=== PATIENT | female | born 1950 | race African-American/Black ===

== ENCOUNTER 2017-09-25 11:10 | Outpatient (CLI) | payer MEDICARE ==
[2017-09-25] MEDS ORDERED: Iopamidol 370 76% 50 ML VIAL FS ONE (13:26)
[2017-09-25] MEDS ORDERED: Iopamidol 370 76% 100 ML VIAL ONE (13:26)
--- NOTE | 2017-09-25 13:54 | CT ---
CT ABDOMEN AND PELVIS WITH AND WITHOUT CONTRAST: HISTORY: Abnormal weight loss and pelvic pathology. COMPARISON: None. TECHNIQUE: Multiple contiguous axial images were obtained in a CT of the abdomen and pelvis with and without IV contrast, and p.o. contrast was administered. Coronal reformats were performed. FINDINGS: The liver, gallbladder, kidneys, adrenal glands, spleen, and pancreas are unremarkable. No free air, free fluid, or stranding changes are seen in the abdomen or pelvis. The uterus is enlarged and contains multiple calcified fibroids. The large and small bowel are unrem arkable. The appendix is unremarkable. No abdominal or pelvic lymphadenopathy is seen. 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 Degenerative changes and post surgical changes are seen in the spine. The abdominal wall soft tissue s and visualized inferior thorax are unremarkable. IMPRESSION: Enlarged fibroid uterus. POS: [facility]
== END 2017-09-25 11:11 | disposition home or self-care (01) ==
LOC: CT 11:10
PROVIDERS: ATTEND Family Medicine
DX: R63.4 Abnormal weight loss (principal); D25.9 Leiomyoma of uterus, unspecified
CPT/HCPCS: 74178

== ENCOUNTER 2018-05-14 11:13 | Emergency (ER) | payer MEDICARE ==
[~2018-05-14 11:13] MED LIST: ISOVUE-370 76%-LOCM 1 ML ONE
[2018-05-14] MEDS ORDERED: Ondansetron HCl/PF 4 MG/2 ML Vial ONE ×2 (11:44→14:22)
[2018-05-14] MEDS ORDERED: HYDROmorphone 0.5 MG/0.5 ML SYRINGE ONE (11:44)
[2018-05-14 11:50] LABS: #Eosinphils 0.1 thou/uL (0.0-0.7); #Lymphocytes 2.9 thou/uL (1.20-3.40); #Monocytes 0.4 thou/uL (0.11-0.59); #Neutrophils 2.5 thou/uL (1.40-6.50); %Basophils 0.5 % (0.0-1.0); %Eosinophils 2.3 % (0.0-10.0); %Monocytes 7.3 % (0.0-10.0); %Neutrophils 40.9 % (42.0-75.0); Hemoglobin 13.5 g/dL (12.0-16.0); Mean Corpuscular HGB CONC 32.5 g/dL (32.0-36.0); Mean Corpuscular Hemoglobin 29.6 pg (27.0-31.0); Mean Corpuscular Volume 90.9 fL (78.0-98.0); Mean Platelet Volume 7.3 fL (7.4-10.4); Platelet Count 171 thou/uL (130-400); RBC Distribution Width 12.2 % (11.5-14.5); Red Blood Cell (RBC) Count 4.55 mill/uL (4.20-5.40)
[2018-05-14 12:05] LABS: ALT (SGPT) Less than 7 U/L (8-55); AST (SGOT) 12 U/L (5-34); Albumin 3.8 g/dL (3.4-4.8); Alkaline Phosphatase 54 U/L (40-150); Anion Gap 11 mmol/L (10-20); BUN (Urea Nitrogen) 7 mg/dL (9.8-20.1); Bilirubin, Total 0.5 mg/dL (0.2-1.2); CK (CPK) 78 U/L (29-168); Calc. Creatinine Clearance 0 mL/min (70-130); Calcium 9.4 mg/dL (7.8-10.44); Carbon Dioxide 28 mmol/L (23-31); Chloride 103 mmol/L (98-107); Estimated GFR-MDRD Greater than 90; Globulin 3.2 g/dL (2.4-3.5); Glucose 132 mg/dL (80-115); Lipase 33 U/L (8-78); Sodium 139 mmol/L (136-145)
[2018-05-14 12:07] LABS: CKMB 0.7 ng/mL (0-6.6); Troponin I Less than 0.010 ng/mL (< 0.028)
[2018-05-14 12:09] LABS: Potassium 2.8 mmol/L (3.5-5.1)
--- NOTE | 2018-05-14 12:29 | ULT ---
SONOGRAM RIGHT UPPER QUADRANT: History: Nausea, vomiting. Right upper quadrant pain. FINDINGS: Gallbladder has a normal appearance without evidence of stones. Common duct is 0.4 cm. The liver is u nremarkable without focal mass or intrahepatic biliary dilatation. No free fluid. IMPRESSION: No evidence of gallstones or biliary obstruction. POS: [facility]
[2018-05-14 13:07] LABS: Bilirubin Negative (Negative); Blood, Urine Negative (Negative); Clarity CLEAR (Clear); Glucose, Urine (Dipstick) Negative (Negative); Leukocyte Negative (Negative); Nitrite Negative (Negative); Protein, Urine (Dipstick) Negative (Neg-Trace); Specific Gravity, Urine 1.013 (1.002-1.036)
[2018-05-14] MEDS ORDERED: ADMIXTURE FEE IVPB SCH (13:45)
[2018-05-14] MEDS ORDERED: POTASSIUM CHLORIDE IVPB SCH (13:45)
[2018-05-14] MEDS ORDERED: WATER IVPB SCH (13:45)
[2018-05-14] MEDS ORDERED: DEXTROSE IVPB SCH (13:45)
--- NOTE | 2018-05-14 14:52 | RAD ---
CHEST ONE VIEW: 05/14/18 HISTORY: Vomiting. Chest pain. COMPARISON: 06/11/17. FINDINGS: The cardiac silhouette is magnified by projection. The pulmonary vasculature upper limits of normal w ith mild reticulonodular interstitial prominence throughout each lung. Mild linear atelectasis at the left base. Mediastinum is midline with aortic calcification. No lobar consolidation or evidence of p neumothorax. IMPRESSION: 1. Widespread reticulonodular interstitial prominence may be related to borderline pulmonary va scular congestion and is more pronounced than on the prior study. 2. Atherosclerosis. POS: [facility]
--- NOTE | 2018-05-14 14:59 | CT ---
CT OF ABDOMEN AND PELVIS WITH CONTRAST ENHANCEMENT: 05/14/18 HISTORY: Right sided abdomen pain. COMPARISON: 09/25/17 examination. The lung bases show some chronic appearing interstitial lung change. Some of these interstitial sergio ngs are slightly accentuated as compared to the prior exam and probably represents some superimposed atelectasis. No confluent infiltrative process is seen. No pulmonary nodules. The liver, spleen, pancreas and gallbladder regions appear unremarkable. Right and left adrenal glands and right and left kidneys are normal in size. No obstruction. There is no significant periaortic or mesenteric adenopathy. There is extensive renal artery calcifications. The patient has undergoing an aortobifemoral bypass. CT OF PELVIS PERFORMED WITH CONTRAST ENHANCEMENT: The appendix is normal. There is a fibromatous appearing uterus. There is no evidence of any signific ant adenopathy or mass. No significant bony findings. IMPRESSION: 1. Enlarged fibromatous uterus. 2. Aortobifemoral bypass. 3. Chronic interstitial lung changes. The interstitial changes are somewhat accentuated as tyrone red to the prior exam and probably represents some superimposed atelectasis. Some mild element of rico ma could also be present. POS: [facility]
--- NOTE | 2018-05-18 13:36 | EKG ---
Test Reason : Blood Pressure : / mmHG Vent. Rate : 051 BPM Atrial Rate : 051 BPM P-R Int : 156 ms QRS Dur : 088 ms QT Int : 456 ms P-R-T Axes : 044 -09 -21 degrees QTc Int : 420 ms Sinus bradycardia Nonspecific T wave abnormality Abnormal ECG Confirmed by JERRY SAMUELS, SAMANTHA Carbajal ([id number]), newspaper copy editor MELODY PADILLA ([id number]) on 05/18/2018 1:35:34 PM Referred By: Confirmed By:SAMANTHA EDWARDS MD
== END 2018-05-14 16:40 | disposition home or self-care (01) ==
LOC: ERS 11:13
DX: R11.2 Nausea with vomiting, unspecified (principal); I10 Essential (primary) hypertension; E78.5 Hyperlipidemia, unspecified; F17.210 Nicotine dependence, cigarettes, uncomplicated; Z79.82 Long term (current) use of aspirin; Z79.899 Other long term (current) drug therapy
CPT/HCPCS: 36415; 51701; 71045; 74177; 76705; 80053; 81003; 82553; 83605; 83690; 84484; 85025; 93005; 96361; 96374; 96375; 96376; A4353; J1170; J2405; J3480; J7070

== ENCOUNTER 2018-06-06 13:00 | Outpatient (CLI) | payer MEDICARE ==
--- NOTE | 2018-06-06 16:48 | RAD ---
TWO VIEWS OF THE CHEST: 06/06/18 HISTORY: Yearly check up. COMPARISON: 06/11/17. FINDINGS: No pneumothorax or pleural fluid. No lobar consolidation or alveolar edema. Postoperative clips are s een in the upper abdomen, incompletely assessed on this exam. IMPRESSION: No acute findings. Stable two view examination of the chest. POS: [facility]
== END 2018-06-06 13:01 | disposition home or self-care (01) ==
LOC: BICMAMMO 13:00
PROVIDERS: ATTEND Family Medicine
DX: Z12.31 Encounter for screening mammogram for malignant neoplasm of breast (principal); Z00.00 Encounter for general adult medical examination without abnormal findings; Z80.3 Family history of malignant neoplasm of breast
CPT/HCPCS: 71046; 77063; 77067

== ENCOUNTER 2018-07-30 14:12 | Outpatient (CLI) | payer MEDICARE, OTHER ==
--- NOTE | 2018-07-30 14:58 | RAD ---
TWO VIEW CHEST: Indications: Abnormal chest radiograph. Comparison: 06-06-18 FINDINGS: Lung wylie remain clear of infiltrate. Interstitial markings are mildly prominent and there is stran ding in the left lower lobe which is stable. Vascular markings normal. Heart and mediastinum unremark able. Osseous structures unremarkable. IMPRESSION: Chronic lung parenchymal changes which appear stable. No acute process apparent. POS: [facility]
== END 2018-07-30 14:13 | disposition home or self-care (01) ==
LOC: BICRAD 14:12
PROVIDERS: ATTEND Family Medicine
DX: R93.89 Abnormal findings on diagnostic imaging of other specified body structures (principal)
CPT/HCPCS: 71046

== ENCOUNTER 2018-08-27 14:43 | Emergency (ER) | payer MEDICARE, OTHER ==
[2018-08-27 15:15] LABS: Bilirubin Small (Negative); Blood, Urine Small (Negative); Clarity Cloudy (Clear); Glucose, Urine (Dipstick) Negative (Negative); Leukocyte Moderate (Negative); Nitrite Negative (Negative); Protein, Urine (Dipstick) 30 mg/dL (Neg-Trace); Urobilinogen > or = 8.0 mg/dL (0.2-1.0); pH, Urine 6.5 (5.0-9.0)
[2018-08-27 15:19] LABS: Bacteria/HPF 2+ HPF (None Seen)
[2018-08-27 15:51] LABS: Band 15 % (5-11); Dohle Bodies SLIGHT; Hemoglobin 12.9 g/dL (12.0-16.0); Lymphocytes 4 % (21-51); MDiff Complete? YES; Mean Corpuscular HGB CONC 32.4 g/dL (32.0-36.0); Mean Corpuscular Hemoglobin 28.8 pg (27.0-31.0); Mean Corpuscular Volume 88.7 fL (78.0-98.0); Mean Platelet Volume 6.8 fL (7.4-10.4); Monocytes 5 % (0-10); Neutrophil 71 % (42-75); Platelet Count 206 thou/uL (130-400); Platelet Morphology Comment Appears Adequate; RBC Distribution Width 12.2 % (11.5-14.5); Reactive Lymphocytes 5 % (0-10); Red Blood Cell (RBC) Count 4.49 mill/uL (4.20-5.40); Toxic Granulation SLIGHT; Vacuoles SLIGHT; White Blood Cell (WBC) Count 21.1 thou/uL (4.8-10.8)
[2018-08-27 15:56] LABS: ALT (SGPT) 11 U/L (8-55); AST (SGOT) 14 U/L (5-34); Albumin 3.2 g/dL (3.4-4.8); Alkaline Phosphatase 85 U/L (40-150); Anion Gap 15 mmol/L (10-20); BUN (Urea Nitrogen) 7 mg/dL (9.8-20.1); Bilirubin, Total 0.6 mg/dL (0.2-1.2); Calc. Creatinine Clearance 0 mL/min (70-130); Calcium 9.3 mg/dL (7.8-10.44); Carbon Dioxide 32 mmol/L (23-31); Chloride 93 mmol/L (98-107); Estimated GFR-MDRD Greater than 90; Glucose 109 mg/dL (80-115); Lipase 10 U/L (8-78); Protein, Total 7.2 g/dL (6.0-8.3); Sodium 137 mmol/L (136-145)
[2018-08-27 16:00] LABS: Potassium 2.6 mmol/L (3.5-5.1)
[2018-08-27] MEDS ORDERED: Cephalexin 500 MG CAP ONE (16:24)
[2018-08-27] MEDS ORDERED: Potassium Chloride 20 MEQ TAB ONE ×2 (16:24→16:25)
[2018-08-27] MEDS ORDERED: Potassium Chloride 20 MEQ/100 ML PREMIX BAG ONE (16:24)
--- NOTE | 2018-08-27 17:19 | CT ---
CT ABDOMEN AND PELVIS WITH CONTRAST: Date: 08/27/18 Reference made to 05/14/18 exam. CLINICAL INDICATION: Left lower abdominal pain. FINDINGS: When compared to recent exam, there has been marked increased volume of the uterus, which predominant ly is due to low density within the expected confines of the endometrium, which contains irregular pe ripheral margins. This is encompassed by several calcified fibroids, one of which is located at the l ower uterine segment and likely occludes the region of the internal os. Therefore, the finding is mos t consistent with hematometrocolpos and the associated distention likely would be the course of the p atient's lower abdominal pain. There is punctate hypoattenuation of the hepatic parenchyma, too small to definitively characterize. There is also punctate hypoattenuation of the right renal parenchyma too small to further characteriz e. Minimal distention of each renal pelvis is present without surrounding inflammation. Subtle intrin sic density of the gallbladder may related to mild degree of radiopaque cholelithiasis. Pancreas is g rossly unremarkable. The imaged lung bases reveal mild volume loss and/or scar. There is also depende nt atelectasis of the lung bases. Diffuse vascular disease is present. The regional skeletal structur es reveal degenerative change. IMPRESSION: Findings most consistent with hematometrocolpos due to an obstructing, calcified uterine fibroid. The refore, recommend gynecologic consultation for decompression/biopsy as the possibility of underlying endometrial malignancy is not excluded on the basis of this exam. Additional details as described above. Telephone call to patient's ER physician, Dr. Burns, at 1635 hours on 08/27/18. CODE CR. POS: [facility]
[2018-08-27] MEDS ORDERED: Magnesium Sulfate 2 GM/NS 0.9% 50 ML BAG ONE (17:47)
== END 2018-08-27 18:25 | disposition home or self-care (01) ==
LOC: SCSER 14:43
DX: N85.7 Hematometra (principal); E87.6 Hypokalemia; N39.0 Urinary tract infection, site not specified; I10 Essential (primary) hypertension; E78.5 Hyperlipidemia, unspecified; F17.210 Nicotine dependence, cigarettes, uncomplicated; Z79.899 Other long term (current) drug therapy; Z79.82 Long term (current) use of aspirin
CPT/HCPCS: 36415; 74177; 80053; 81003; 81015; 83690; 83735; 85025; 87086; 96365; 96366; 96367; J3475; J3480

== ENCOUNTER 2018-08-29 17:18 | Emergency (ER) | payer MEDICARE, OTHER ==
[2018-08-29] MEDS ORDERED: Acetaminophen 500 MG TAB ONE (20:06)
--- NOTE | 2018-08-29 21:58 | ULT ---
ULTRASOUND PELVIC ULTRASOUND TRANSVAGINAL DOPPLER DUPLEX: 08/29/18 at 8:40 p.m. HISTORY: 68-year-old female with hematometrocolpos and left sided pelvic pain. TECHNIQUE: Transabdominal transducer used to evaluate intrapelvic contents using the urinary bladder as an acous tic window. Endovaginal transducer used to visualize intrapelvic contents in greater detail. Color fl ow Doppler and Pulsed Doppler spectral waveform analysis of ovaries. FINDINGS: Uterus: 10.5 x 6.5 x 8.5 cm. There are multiple calcified uterine fibroids, some causing strong acoustic shadowing. The endometrial stripe is not visualized. The large fluid-filled cystic central component of the uter us with irregular margins demonstrated on the CT of 08/27/18, is difficult to appreciate on this ultra sound because of the strong acoustic shadowing from the calcified fibroids. The bilateral ovaries are not visualized. No free fluid is visualized in the cul-de-sac. IMPRESSION: 1. Multiple calcified leiomyomata throughout the uterus, with shadowing that obscures much of th e uterus. 2. The uterus is better evaluated on the recent CT of the pelvis of two days ago. CHRISTINA Casey POS: [facility]
[2018-08-29] MEDS ORDERED: HYDROcodone/Acetaminophen 5/325 mg Tablet ONE (22:18)
[2018-08-29] MEDS ORDERED: Ibuprofen 200 MG TAB ONE (22:18)
== END 2018-08-29 22:30 | disposition home or self-care (01) ==
LOC: SCSER 17:18
DX: D25.9 Leiomyoma of uterus, unspecified (principal); I10 Essential (primary) hypertension; E78.5 Hyperlipidemia, unspecified; F17.210 Nicotine dependence, cigarettes, uncomplicated; Z79.899 Other long term (current) drug therapy; Z79.82 Long term (current) use of aspirin
CPT/HCPCS: 76856; 87480; 87491; 87510; 87591; 87660

== ENCOUNTER 2018-10-17 10:40 | Outpatient (CLI) | payer MEDICARE, MEDICAID ==
--- NOTE | 2018-10-17 15:52 | EKG ---
Test Reason : Blood Pressure : / mmHG Vent. Rate : 058 BPM Atrial Rate : 058 BPM P-R Int : 154 ms QRS Dur : 086 ms QT Int : 430 ms P-R-T Axes : 066 -02 030 degrees QTc Int : 422 ms Sinus bradycardia Otherwise normal ECG Confirmed by VERONA MAYER ([id number]) on 10/17/2018 3:52:21 PM Referred By: JEANNIE Confirmed By:VERNOA MAYER
== END 2018-10-17 10:41 | disposition home or self-care (01) ==
LOC: LABBT 10:40
PROVIDERS: ATTEND Obstetrics & Gynecology
DX: Z01.812 Encounter for preprocedural laboratory examination (principal); N71.9 Inflammatory disease of uterus, unspecified; R87.613 High grade squamous intraepithelial lesion on cytologic smear of cervix (HGSIL)
CPT/HCPCS: 93005; 93010

== ENCOUNTER 2018-10-28 06:07 | Day surgery (SDC) | payer MEDICARE, MEDICAID ==
[2018-10-17 10:59] VITALS: BMI 25.7
[2018-10-25 11:02] LABS: Hemoglobin 13.7 g/dL (12.0-16.0); Mean Corpuscular HGB CONC 31.3 g/dL (32.0-36.0); Mean Corpuscular Hemoglobin 28.8 pg (27.0-31.0); Mean Corpuscular Volume 91.8 fL (78.0-98.0); Mean Platelet Volume 7.4 fL (7.4-10.4); Platelet Count 167 thou/uL (130-400); RBC Distribution Width 13.2 % (11.5-14.5); Red Blood Cell (RBC) Count 4.77 mill/uL (4.20-5.40); White Blood Cell (WBC) Count 6.2 thou/uL (4.8-10.8)
--- NOTE | 2018-10-27 23:09 | HP ---
She is scheduled for outpatient surgery on 10/28/2018. HISTORY OF PRESENT ILLNESS: Ms. Moffett is a 68-year-old -[place] female, G2, P2, who originally presented to the emergency room back in August of this year with pelvic pain. She had a CAT scan of the abdomen and pelvis on August 2018, showing multiple calcified uterine fibroids and also had what appeared to be a hematometra on the uterine cavity. She was referred to myself at that time for gynecologic evaluation. Endometrial biopsy was performed with pyometra material noted. No malignancy was seen. She did have a Pap smear obtained during that visit with low-grade KOURTNEY and high-risk HPV virus positivity. While we were waiting for the pathology results, she developed what appeared to be some sepsis and was admitted to [facility], received IV antibiotics for a week. She then was followed back up with me once she recovered from this illness to further follow up the pyometra and also the abnormal Pap smears. She underwent a colposcopic examination and repeat endometrial biopsy on 10/01/2018. The colposcopic procedure at that time showed satisfactory visualization and there was biopsies at 11, 12, and 8 o'clock for some acetowhite areas with mosaicism suspicious for high-grade dysplasia. She also had endocervical biopsy along with a repeat endometrial biopsy. Endocervical biopsy did show moderate dysplasia of the cervix along with some mild dysplasia in the ectocervix. Again, the endometrial biopsy had no evidence of any endometrial cancer. The patient's inflammatory condition of the uterus appeared to be essentially resolving and she was given another week of Augmentin 875 mg b.i.d. PAST MEDICAL HISTORY: Chronic hypertension, chronic back pain, and hyperlipidemia. SOCIAL HISTORY: She is half a day pack per day smoker. No excessive alcohol use. No drug use. PAST SURGICAL HISTORY: Back and spine surgery and leg surgery procedure. ALLERGIES: SHE HAS NO KNOWN DRUG ALLERGIES. CURRENT MEDICATIONS: 1. Amlodipine 10 mg daily. 2. Gabapentin 300 mg at bedtime for chronic back pain. 3. She also uses hydrocodone 10 mg-325 mg q.6 hours p.r.n. back pain. 4. Simvastatin 20 mg tablet daily. PHYSICAL EXAMINATION: GENERAL: The patient is a well-nourished, well-developed female. VITAL SIGNS: Height is 5 feet 4 inches, weight 150 pounds, BMI 25.7, blood pressure is 116/60, pulse 68, respirations 18, and O2 sats 99% on room air. HEENT: Within normal limits. CHEST: Clear to auscultation. HEART: Regular rate and rhythm. S1 and S2 heart sounds. No murmurs, rubs, or gallops. ABDOMEN: Soft, nontender, and nondistended with no palpable masses. PELVIC: Vulva and vagina had no lesions. Cervix had no visible lesions. As noted, the colposcopy was performed. Uterus approximately 8 week size. Uterus sounded to 8 cm on endometrial biopsy. There were no adnexal masses. 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 PLAN: Plan is to proceed with cold knife cone of the cervix along with D and C to rule out any higher level of uterine or endocervical dysplasia. Also treatment potential for cold knife cone for the cervical dysplasia. Risks and benefits of procedure have been discussed in detail. She is set for surgery on 10/28/2018. Job ID: [id number]
[2018-10-28] MEDS ORDERED: Ferric Subsulfate 8 ML BOT ONE (06:42)
[2018-10-28] MEDS ORDERED: Lidocaine 1% w/Epinephrine 1:100K 20 ML VIAL ONE (06:42)
[2018-10-28] MEDS ORDERED: Fentanyl 100 MCG/2 ML VIAL ONE (06:44)
[2018-10-28] MEDS ORDERED: PROPOFOL 200 MG/20 ML VIAL ONE (09:53)
[2018-10-28] MEDS ORDERED: Dexamethasone 20 MG/5 ML VIAL ONE (09:53)
[2018-10-28] MEDS ORDERED: Lidocaine 1% PF 5 ML VIAL ONE (09:53)
[2018-10-28] MEDS ORDERED: ePHEDrine 50 MG/ML VIAL ONE (09:53)
[2018-10-28] MEDS ORDERED: Ondansetron PF 4 MG/2 ML Vial ONE (09:53)
--- NOTE | 2018-10-28 09:59 | OP ---
DATE OF PROCEDURE: 10/28/2018 PREOPERATIVE DIAGNOSES: 1. A 68-year-old female with recent colposcopic biopsy and endocervical curettage of high-grade cervical dysplasia. 2. Recent pyometra of the uterus resolved with previous benign EMB. POSTOPERATIVE DIAGNOSES: 1. A 68-year-old female with recent colposcopic biopsy and endocervical curettage of high-grade cervical dysplasia. 2. Recent pyometra of the uterus resolved with previous benign EMB. PROCEDURES PERFORMED: 1. D and C of the uterus. 2. Cold knife cone biopsy of the ecto and endocervix. ANESTHESIA: General endotracheal. ESTIMATED BLOOD LOSS: 10 mL. COMPLICATIONS: None. COUNTS: Correct x2. PATHOLOGY: Endometrial curettings and ecto and endocervix. FINDINGS: 1. No gross cervical lesions noted on the ectocervix. The cervix was noted to be short and flush to the vagina posteriorly. 2. Uterus sound was 8 cm pre and post D and C. It was approximately 6 to 8-week size consistent with uterine fibroids. DISPOSITION: Recovery room, then planned to go to Day Stay and discharged home with followup in 2 to 3 weeks. DESCRIPTION OF PROCEDURE: The patient previously received informed consent in regard to surgery. She was taken back to the operating room, where she received a general endotracheal anesthetic agent without complications. She was placed in the dorsal lithotomy position with the use of Greg stirrups. The patient was prepped in usual sterile fashion. In and out catheterization of the bladder was performed at this time with approximately 100 mL of clear urine. A side-arm speculum was placed in the vagina. The anterior lip of the cervix was grasped with a single-tooth tenaculum. The uterus sounded to 8 cm. The cervix was sequentially dilated to a size 18 Dempsey dilator. Sharp curettage of the endometrial cavity was then performed. These were sent for final diagnosis. The side-arm speculum was then removed and a weighted speculum was placed in the vagina along with the anterior Bascom retractors. The 2 angles of the cervix were then sutured with 0 Vicryl suture in [id number] stitch fashion for stay sutures. A Eddy blade was then utilized to incise and remove a cone shaped portion of the ecto and endocervix. The endocervical margin was marked with a marking pen and then later tagged with a suture. The stay sutures were then utilized to do a running locking ectocervical stitch on the edges and some endocervix for hemostasis bilaterally. Once this was achieved, then hemostasis was confirmed additional cautery on the edges of the ectocervix were performed with Bovie cautery. Hemostasis was then confirmed again and the stay sutures were cut with tags. The patient was then awakened from anesthesia and transferred to recovery room in stable condition. Job ID: [id number]
== END 2018-10-28 10:30 | disposition home or self-care (01) ==
LOC: SDC 06:07
PROVIDERS: ATTEND Obstetrics & Gynecology
PROC: 0UDB7ZZ Extraction of Endometrium, Via Natural or Artificial Opening (ICD-10-PCS; principal; 2018-10-28)
PROC: 0UBC7ZX Excision of Cervix, Via Natural or Artificial Opening, Diagnostic (ICD-10-PCS; 2018-10-28)
DX: D06.0 Carcinoma in situ of endocervix (principal); D06.1 Carcinoma in situ of exocervix; I10 Essential (primary) hypertension; G89.29 Other chronic pain; M54.9 Dorsalgia, unspecified; E78.5 Hyperlipidemia, unspecified; F17.210 Nicotine dependence, cigarettes, uncomplicated; Z79.899 Other long term (current) drug therapy; Z79.82 Long term (current) use of aspirin
CPT/HCPCS: 36415; 85027; 86850; 86900; 86901; 88305; 88307; J1100; J2001; J2405; J2704; J3010; J3490

== ENCOUNTER 2019-03-27 10:59 | Outpatient (CLI) | payer MEDICARE, MEDICAID ==
[2019-03-27 12:11] LABS: Hemoglobin 13.5 g/dL (12.0-16.0); Mean Corpuscular HGB CONC 32.5 g/dL (32.0-36.0); Mean Corpuscular Hemoglobin 29.1 pg (27.0-31.0); Mean Corpuscular Volume 89.6 fL (78.0-98.0); Mean Platelet Volume 6.8 fL (7.4-10.4); Platelet Count 228 thou/uL (130-400); RBC Distribution Width 12.2 % (11.5-14.5); Red Blood Cell (RBC) Count 4.64 mill/uL (4.20-5.40); White Blood Cell (WBC) Count 5.8 thou/uL (4.8-10.8)
[2019-03-27 12:27] LABS: ALT (SGPT) Less than 7 U/L (8-55); AST (SGOT) 11 U/L (5-34); Albumin 3.9 g/dL (3.4-4.8); Alkaline Phosphatase 89 U/L (40-150); Anion Gap 11 mmol/L (10-20); BUN (Urea Nitrogen) 6 mg/dL (9.8-20.1); Bilirubin, Total 0.4 mg/dL (0.2-1.2); Calc. Creatinine Clearance 0 mL/min (70-130); Calcium 9.2 mg/dL (7.8-10.44); Carbon Dioxide 27 mmol/L (23-31); Chloride 105 mmol/L (98-107); Estimated GFR-MDRD Greater than 90; Globulin 3.3 g/dL (2.4-3.5); Glucose 96 mg/dL (80-115); Potassium 3.7 mmol/L (3.5-5.1); Protein, Total 7.2 g/dL (6.0-8.3); Sodium 139 mmol/L (136-145)
== END 2019-03-27 11:00 | disposition home or self-care (01) ==
LOC: LABBT 10:59
PROVIDERS: ATTEND Obstetrics & Gynecology
DX: Z01.812 Encounter for preprocedural laboratory examination (principal); D21.9 Benign neoplasm of connective and other soft tissue, unspecified; N95.0 Postmenopausal bleeding
CPT/HCPCS: 80053; 85027; 86850; 86900; 86901

== ENCOUNTER 2019-04-01 08:39 | Day surgery (SDC) | payer MEDICARE, MEDICAID ==
[2019-03-27 11:14] VITALS: BMI 25.5
--- NOTE | 2019-03-31 09:27 | HP ---
She is set for surgery on 04/01/2019. HISTORY OF PRESENT ILLNESS: Ms. Moffett is a 68-year-old female. She recently presented to the emergency room in August 2018 with pelvic pain. At that time, she had a CAT scan of the abdomen and pelvis in August 2018, showing multiple calcified uterine fibroids and also had what appeared to be a hematometra on the uterine cavity. She was referred to myself at that time for gynecologic examination. Endometrial biopsy was performed with the pyometra material noted. No malignancy was seen. She also had a Pap smear with HPV, which showed high-risk HPV virus findings and low-grade cervical dysplasia. She received a prolonged antibiotic course due to the pyometra and returned for colposcopic examination, which was performed on 10/01/2018. She had biopsies of the cervix at that time at 11, 12, and 8 o'clock for some acetowhite changes with some mosaicism, which were suspicious for high-grade dysplasia. Endocervical curettage was also performed at that time, which also had high-grade cervical dysplasia. Endometrial biopsy had been repeated again without any evidence of endometrial cancer. Due to the involvement of the endocervical cavity and the concern of the patient's clinical findings, she underwent a cold knife cone biopsy on 10/29/2018. The tissue from the cone biopsy showed high-grade cervical dysplasia with multiple skip areas in the endocervical canal with no invasive cancer findings. PAST MEDICAL HISTORY: Chronic hypertension, chronic back pain, and hyperlipidemia. SOCIAL HISTORY: Of note, she is half a pack a day daily cigarette smoker. No excessive alcohol or drug use. PAST SURGICAL HISTORY: As noted, back and spine surgery and leg surgery along with cold knife cone procedure in October of this year. CURRENT MEDICATIONS: 1. Amlodipine 10 mg daily. 2. Gabapentin 300 mg at bedtime for chronic back pain. 3. P.r.n. hydrocodone 10 mg/325 q.6 hours as needed for back pain. 4. Simvastatin 20 mg tablet daily. PHYSICAL EXAMINATION: GENERAL: The patient is a well-nourished, well-developed female. VITAL SIGNS: Height 5 feet 4 inches, weight 150, BMI 25.7, blood pressure was 120/70, pulse 68, respirations 18. HEENT: Within normal limits. CHEST: Clear to auscultation. HEART: Regular rate and rhythm. S1 and S2 heart sounds. No murmurs, rubs, or gallops. ABDOMEN: Soft, nontender, nondistended with no palpable masses. PELVIC: Vulva and vagina had no lesions. Cervix had no visible lesions noted. Uterus approximately 8 to 10 weeks size. Uterus sounded on endometrial biopsy x8 cm. There were no adnexal masses. ASSESSMENT: This is a 68-year-old female, G2, P2, with high-grade cervical dysplasia in the endocervical canal with multiple skip lesions established after cold knife cone biopsy. She also has calcified uterine fibroids. PLAN: Plan is to proceed with robotic total laparoscopic hysterectomy and bilateral salpingo-oophorectomy versus ANGELA/BSO for definitive surgery for the high-grade endocervical dysplasia. The patient has high risk HPV virus in smoking and high risk for developing for future cervical cancer. Risks and benefits of procedure have been discussed in detail. She is set for surgery on 04/01/2019. Job ID: [id number]
[2019-04-01] MEDS ORDERED: Famotidine/PF 20 mg/2ml Vial ONE (09:03)
[2019-04-01] MEDS ORDERED: Gabapentin 300 MG CAP ONE (09:03)
[2019-04-01] MEDS ORDERED: CeleCOXIB 100 MG CAP ONE (09:04)
[2019-04-01] MEDS ORDERED: ceFAZolin Sodium (SDC) 2 GM/100 ML BAG ONE (09:04)
[2019-04-01] MEDS ORDERED: Midazolam HCl 2 mg/2 ml Vial ONE (10:16)
[2019-04-01] MEDS ORDERED: Fentanyl 100 MCG/2 ML VIAL ONE ×2 (10:16→15:22)
[2019-04-01] MEDS ORDERED: Bupivacaine HCl 0.5%/Epinephrine 1:200,000/PF 30 ml Vial ONE (10:18)
[2019-04-01] MEDS ORDERED: Ondansetron HCl/PF 4 MG/2 ML Vial IVP PRN (12:22)
[2019-04-01] MEDS ORDERED: Promethazine HCl 25 MG/ML VIAL SLOW IVP PRN (12:22)
[2019-04-01] MEDS ORDERED: Promethazine HCl 25 MG/ML VIAL IM PRN ×2 (12:22→14:50)
[2019-04-01] MEDS ORDERED: Simethicone Chewable 80 MG TAB PO PRN (14:50)
[2019-04-01] MEDS ORDERED: Bisacodyl 10 MG SUPP PR PRN (14:50)
[2019-04-01] MEDS ORDERED: diphenhydrAMINE 25 MG CAP PO PRN (14:50)
[2019-04-01] MEDS ORDERED: traMADol HCl 50 MG TAB PO PRN ×2 (14:50)
[2019-04-01] MEDS ORDERED: Morphine 4 MG/ML VIAL SLOW IVP PRN (14:50)
[2019-04-01] MEDS ORDERED: Ondansetron PF 4 MG/2 ML Vial IVP PRN (14:50)
[2019-04-01] MEDS ORDERED: Zolpidem Tartrate 5 MG TAB PO PRN (14:50)
[2019-04-01] MEDS: Acetaminophen 1,000 MG in Premix Bag 1 BAG IVPB SCH (18:03)
[2019-04-01] MEDS: Sodium Chloride 0.9% 1,000 ML IV SCH (18:03)
--- NOTE | 2019-04-01 20:13 | OP ---
DATE OF PROCEDURE: 04/01/2019 PREOPERATIVE DIAGNOSES: 1. 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 2. Uterine fibroids. 3. Postmenopausal bleeding. POSTOPERATIVE DIAGNOSES: 1. 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 2. Uterine fibroids. 3. Postmenopausal bleeding. 4. In addition, pelvic adhesive disease. PROCEDURES PERFORMED: 1. Robotic total laparoscopic hysterectomy and bilateral salpingo-oophorectomies with lysis of adhesions. 2. Cystoscopy. DRYING FRAME OPERATOR SURGEON: Jared Patrick DO, MS ANESTHESIA: General endotracheal. ESTIMATED BLOOD LOSS: 100 mL. COMPLICATIONS: None. COUNTS: Correct x2. ANTIBIOTICS: 2 g Ancef, on-call to OR. PATHOLOGY: Uterus, cervix, bilateral tubes and ovaries. FINDINGS: 1. Bilateral adnexal structures were both fibrosed and adhesed to the pelvic sidewalls consistent with old pelvic inflammatory disease. Otherwise, normal in appearance in regard to ovarian texture. 2. Uterus was enlarged approximately 10-week size with uterine myoma. 3. Posterior cul-de-sac was adhesed to the posterior lower uterine segment, status post adhesiolysis. 4. 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 5. Cystoscopy: Cystoscopy revealed normal-appearing bladder mucosa, and it was watertight. Bilateral efflux of urine was noted from each ureteral orifice. DISPOSITION: Recovery room, stable. DESCRIPTION OF PROCEDURE: The patient previously received informed consent in regard to surgery. She was taken back to the operating room, where she received a general endotracheal anesthetic agent without complications. She was placed in the dorsal lithotomy position with use of Greg stirrups, prepped and draped in usual sterile fashion. A side-arm speculum was placed in the vagina. The anterior lip of the cervix was grasped with single-tooth tenaculum. Uterus sounded to 8 cm. The size 8-cm CAROLYN uterine manipulator with a 3.0-cm cervical cup was placed. Tenaculum and speculum were then removed. Newman catheter had been placed. Attention was then turned to the abdomen, where perspective trocar sites were infiltrated with 0.5% Marcaine with epinephrine. A 12-mm supraumbilical incision was made. Veress needle was entered into the peritoneal cavity with the patient's pressure less than 5 mmHg. The abdomen was insufflated to the patient's pressure of 15, approximately 4.5 L of carbon dioxide gas. A size 12-mm trocar was placed through the incision site. A laparoscope was introduced through the trocar sleeve confirming proper entry. Additional bilateral lower quadrant 8-mm trocars were placed along with a right upper quadrant size 11 lead assistant manager port. The findings noted in the pelvis were then recognized. The patient had been placed in Trendelenburg position, and the robot was then docked in usual fashion. I broke scrub, and then we proceeded to carry out the surgery from the operative console while my assistants remained at the bedside. The uterus was somewhat fixed due to the scarring. The left adnexal structure was grasped at the fimbria by my lead assistant manager with atraumatic graspers. I did a dissection away of the fallopian tube and the ovary away from the pelvic sidewall in a layering technique with monopolar scissors and then was able to coagulate the thickened infundibulopelvic ligament. This was transected after cauterized. Serial cauterization of the broad ligament hugging close to the specimen was carried out in a layering technique, and then I was able to develop a plane between the peritoneal thin filmy adhesions from the left pelvic sidewall. This was able to be dissected both bluntly and sharply dissecting the specimen away from the pelvic sidewall with traction by my lead assistant manager. This then allowed us to carry down to the left round ligament. It was coagulated and transected, and then this allowed for entry into the anterior cul-de-sac. The vesicouterine peritoneum was somewhat scarred from the old inflammatory changes, but this was layered out, and this allowed me to dissect the bladder atraumatically past the cervicovaginal border. We did insufflate the bladder with saline intermittently to ascertain its position and to prevent injury towards it. I continued to layer and skeletonize the area of the uterine vessels on the left side and coagulated these with bipolar fenestrated cautery. The right adnexal structure was then again grasped by my lead assistant manager. This was more adhesed, and I developed a plane with the bipolar fenestrated cautery incising this, and this allowed for some freeing of the adnexal structures again away from the pelvic sidewall. Hemostasis was meticulously controlled with bipolar fenestrated cautery as needed. This allowed for continued dissection of adnexal structures away from the pelvic sidewall and then coagulation of the IP ligament. This then allowed first to free the tube and ovary, and we had this brought up through the right upper quadrant lead assistant manager port to rid it out of our operative field. The posterior cul-de-sac adhesions were both thin and filmy. We developed then a space through the rectovaginal space down to this with hydrodissection by my lead assistant manager, and then with a blunt dissection with the bipolar fenestrated cautery device and monopolar scissors, we dissected this plane freeing the posterior cul-de-sac from the lower uterine segment and the stump of the cervix. Once this had done, this again helped freed and gave more mobility to the uterus enabling us then to further coagulate and transect the right broad ligament hugging close to the uterine specimen down to the right round ligament. It was coagulated and transected. Again, the anterior leaf of the broad ligament was entered developing the reflection of the vesicouterine peritoneum. This completed the bladder flap and the dissection atraumatically of the bladder off the cervicovaginal margin. The uterine vessels were skeletonized meticulously in this area with intermittent cautery as needed for meticulous hemostasis. The tissue was very friable and thickened due to the previous inflammatory disease the patient had had earlier in the year. After we had mobilized the uterus and felt that the bladder was safely past the cervicovaginal angle, we again insufflated the bladder, and it was watertight and noted to be well away from our anticipated anterior colpotomy. The posterior portion of the cervix was somewhat attenuated from the recent cold knife cone and was a little bit more difficult to delineate its margins, but we began the anterior colpotomy from 12 to 3 and 12 to 9 and then secured the vessels here, and then this allowed us to better ascertain the region in line for further posterior colpotomy direction. This was carried out meticulously with cautery and cutting with the monopolar scissors until the specimen was released. To ensure that the cervix had been completely removed, we did cut back on the posterior side, and the majority of the cervix was removed and fragmented away from the uterine specimen through the vaginal vault. Then, we were able to remove the uterus through the vaginal vault. The vaginal cuff was inspected, and it was cauterized of any areas of oozing. It was then closed with Stratafix suture starting from the right angle to the left angle. The posterior cuff was fragmented due to the difficulty in getting the backside of the cervix and closing this, so we did close this adequately it was felt. The pelvis was irrigated and suctioned. All pedicle sites were inspected, and the pressure was dropped to low, and no areas of oozing were noted. Tisseel was placed due to some of the oozing from the friability of the old inflammatory changes for added hemostasis support. The robot was then undocked, and the trocar sleeves were removed. My lead assistant manager began closing the trocar sites, and the OR nurse noted more of a serosanguineous bloody fluid from the vaginal vault, and on inspection with the speculum, it appeared to be just a Pérez-Aid color red fluid from the vagina. I inspected this with then speculum and then got a weighted speculum, a right angle retractor, and a [place]. There appeared to be an approximately 1-cm defect in the midportion of the vaginal cuff most likely to the folding of the cuff during the repair, and I was able to then adequately expose this grabbing its edges with Allis clamps. I oversewed and reinforced the vaginal cuff with interrupted agbbah-dy-tfiux stitches of 2-0 Vicryl. Approximately 5 stitches were placed to reinforce the cuff line. The irrigation fluid resolved from draining from this. I did then perform cystoscopy of the bladder with 30-degree scope and 70-degree scope. With 30-degree scope, the bladder was distended with saline, and the bladder mucosa was inspected. There were no defects or lesions seen, and the bladder was watertight. Then, a 70-degree scope was placed, and I was able to visualize some efflux from the right UO and the left UO of urine. Once this was confirmed, the cystoscopy was completed, and the Newman bag was replaced with clear urine draining from the Newman catheter. The remainder of the trocar sites had been closed by my lead assistant manager. The fascial defect had been approximated with 0 Vicryl in gsditw-[id number]-dwnkp stitch fashion over the umbilicus area. The patient was then awakened from anesthesia and transferred to recovery room in stable condition. Job ID: [id number]
[2019-04-01] MEDS ORDERED: Atorvastatin Calcium 10 MG TAB PO SCH (21:00)
[2019-04-01] MEDS ORDERED: Ketorolac Tromethamine 30 MG/ML VIAL IVP SCH (22:00)
[2019-04-02] MEDS: Acetaminophen 1,000 MG in Premix Bag 1 BAG IVPB SCH (00:08)
[2019-04-02] MEDS: Sodium Chloride 0.9% 1,000 ML IV SCH (02:29)
[2019-04-02 04:30] LABS: Hemoglobin 11.4 g/dL (12.0-16.0); Mean Corpuscular HGB CONC 32.6 g/dL (32.0-36.0); Mean Corpuscular Hemoglobin 29.6 pg (27.0-31.0); Mean Corpuscular Volume 90.8 fL (78.0-98.0); Mean Platelet Volume 7.1 fL (7.4-10.4); Platelet Count 171 thou/uL (130-400); RBC Distribution Width 12.3 % (11.5-14.5); Red Blood Cell (RBC) Count 3.86 mill/uL (4.20-5.40); White Blood Cell (WBC) Count 12.2 thou/uL (4.8-10.8)
[2019-04-02] MEDS ORDERED: Ibuprofen 800 MG TAB PO SCH (06:00)
[2019-04-02] MEDS ORDERED: Amlodipine 10 MG TAB PO SCH (09:00)
[2019-04-02] MEDS ORDERED: Multivit, Therapeutic 1 TAB PO SCH (09:00)
[2019-04-02] MEDS: HYDROcodone/Acetaminophen 7.5/325 mg Tablet PO PRN ×2 (09:33→15:46)
[2019-04-02 16:44] VITALS: BP 100/53; TEMP 98.8
[2019-04-02] MEDS ORDERED: Ibuprofen 600 MG TAB PO SCH (22:00)
--- NOTE | 2019-04-03 01:52 | DIS ---
DATE OF ADMISSION: 04/01/2019 DATE OF DISCHARGE: 04/02/2019 DIAGNOSES: 1. High-grade cervical dysplasia of the ecto and endocervix. 2. Uterine fibroids. 3. Postmenopausal bleeding. 4. Pelvic adhesive disease. PROCEDURES PERFORMED: Robotic total laparoscopic hysterectomy and bilateral salpingo-oophorectomy with lysis of adhesions. SUMMARY OF HOSPITAL COURSE: Ms. Moffett is a 68-year-old female with history of recent cold knife cone biopsy several months ago for high-grade cervical dysplasia involving the endocervical canal. She also has uterine fibroids and had some episodes of pyometra with subsequent D and C and biopsies benign for malignancy. Due to the high-grade dysplasia involving multiple skip points of her endocervix, she underwent definitive surgical therapy with robotic hysterectomy and bilateral salpingo-oophorectomy. She did have significant adhesions noted intraoperatively and she also had cystoscopy a time to rule out any possible bladder or ureteral injuries. Cystoscopy was negative along with bilateral ureteral orifices showing efflux of urine postoperatively. The patient has done well postoperatively. Vital signs remained stable. She has been afebrile. Her postoperative hematocrit was 35% this morning. She is ambulating, voiding and tolerating regular diet at the time of discharge. Discharge medications will be [place] 7.5 mg every 6 hours as needed for pain, dadv-mtk-exkawyc ibuprofen as directed. Resume her maintenance medications for hypertension. Pathology is pending at the time of this dictation. She has a followup in 2 and 6 weeks postoperatively. Job ID: [id number]
[2019-04-03] MEDS ORDERED: HYDROcodone/Acetaminophen 5/325 mg Tablet PO PRN ×2 (04:00)
== END 2019-04-02 17:45 | disposition home or self-care (01) ==
LOC: SDC 08:39 → 3SW 16:42 → UNDOADMIN 16:42 → UNDODISIN 04-02 17:45 → SDC 04-02 17:45
PROVIDERS: ATTEND Obstetrics & Gynecology
PROC: 0UT24ZZ Resection of Bilateral Ovaries, Percutaneous Endoscopic Approach (ICD-10-PCS; principal; 2019-04-01)
PROC: 0UB74ZZ Excision of Bilateral Fallopian Tubes, Percutaneous Endoscopic Approach (ICD-10-PCS; 2019-04-01)
PROC: 0UT94ZZ Resection of Uterus, Percutaneous Endoscopic Approach (ICD-10-PCS; 2019-04-01)
PROC: 0UT24ZZ Resection of Bilateral Ovaries, Percutaneous Endoscopic Approach (ICD-10-PCS; 2019-04-01)
PROC: 0UT74ZZ Resection of Bilateral Fallopian Tubes, Percutaneous Endoscopic Approach (ICD-10-PCS; 2019-04-01)
DX: D25.9 Leiomyoma of uterus, unspecified (principal); D06.0 Carcinoma in situ of endocervix; D06.1 Carcinoma in situ of exocervix; N83.202 Unspecified ovarian cyst, left side; N83.201 Unspecified ovarian cyst, right side; N71.1 Chronic inflammatory disease of uterus; N95.0 Postmenopausal bleeding; I10 Essential (primary) hypertension; E78.5 Hyperlipidemia, unspecified; F17.210 Nicotine dependence, cigarettes, uncomplicated; G89.29 Other chronic pain; M54.9 Dorsalgia, unspecified; Z79.899 Other long term (current) drug therapy
CPT/HCPCS: 36415; 85027; 88307; J0131; J0670; J0690; J1885; J2250; J3010; S0028

== ENCOUNTER 2019-06-11 12:07 | Outpatient (CLI) | payer MEDICARE, MEDICAID ==
--- NOTE | 2019-06-11 12:50 | MMO ---
Bilateral MAMMO Bilat Screen [facility]. CLINICAL HISTORY: Patient is 69 years old and is seen for screening. The patient has no family history of breast cancer. The patient has no personal history of cancer. VIEWS: The views performed were: bilateral craniocaudal with tomosynthesis and bilateral mediolateral oblique with tomosynthesis. This study has been interpreted with the assistance of computer-aided detection. MAMMOGRAM FINDINGS: There are scattered fibroglandular densities. There are stable benign appearing calcifications seen in both breasts. There are also vascular calcifications. There are no suspicious masses, suspicious calcifications, or new areas of architectural distortion. IMPRESSION: THERE IS NO MAMMOGRAPHIC EVIDENCE OF MALIGNANCY. A ROUTINE FOLLOW-UP MAMMOGRAM IN 1 YEAR IS RECOMMENDED. THE RESULTS OF THIS EXAM WERE SENT TO THE PATIENT. ACR BI-RADS Category 2 - Benign finding MAMMOGRAPHY NOTE: 1. A negative mammogram report should not delay a biopsy if a dominant of clinically suspicious mass is present. 2. Approximately 10% to 15% of breast cancers are not detected by mammography. 3. Adenosis and dense breasts may obscure an underlying neoplasm. Reported by: INOA MEDINA MD Electonically Signed: [id number]
--- NOTE | 2019-06-11 13:21 | RAD ---
CHEST 2 VIEWS: Date: 06/11/19 HISTORY: Tobacco abuse. Smoking. COMPARISON: 07/30/18. FINDINGS: Cardiac silhouette and pulmonary vasculature are unremarkable. Lungs remain hyperinflated with mild w idespread interstitial coarsening. No confluent air space consolidation, pneumothorax, or pleural flu id are apparent. IMPRESSION: No active cardiopulmonary abnormalities are demonstrated. POS: TPC
== END 2019-06-11 12:08 | disposition home or self-care (01) ==
LOC: BICMAMMO 12:07
PROVIDERS: ATTEND Family Medicine
DX: Z12.31 Encounter for screening mammogram for malignant neoplasm of breast (principal); F17.200 Nicotine dependence, unspecified, uncomplicated
CPT/HCPCS: 71046; 77063; 77067

== ENCOUNTER 2020-06-15 11:51 | Outpatient (CLI) | payer MEDICARE, MEDICAID ==
--- NOTE | 2020-06-15 13:26 | MMO ---
Bilateral MAMMO Bilat Screen [facility]. CLINICAL HISTORY: Patient is 70 years old and is seen for screening. The patient has no family history of breast cancer. The patient has no personal history of cancer. The patient has a history of bilateral Stereotatic Biopsy in 2006 - benign. VIEWS: The views performed were: bilateral craniocaudal with tomosynthesis and bilateral mediolateral oblique with tomosynthesis. FILMS COMPARED: The present examination has been compared to prior imaging studies performed at [facility] on 06/01/2016, 06/11/2017, 06/06/2018 and 06/11/2019. This study has been interpreted with the assistance of computer-aided detection. MAMMOGRAM FINDINGS: There are scattered fibroglandular densities. Finding 1: Left biopsy clip. Benign calcifications are noted bilaterally. Finding 2: There is a focal asymmetry seen in the central region of the left breast. IMPRESSION: FINDING 1: FINDINGS IN BOTH BREASTS ARE BENIGN. FINDING 2: FOCAL ASYMMETRY IN THE LEFT BREAST REQUIRES ADDITIONAL EVALUATION. SPOT COMPRESSION IS RECOMMENDED. AN ULTRASOUND EXAM IS RECOMMENDED IF NEEDED. ADDITIONAL IMAGING. THE RESULTS OF THIS EXAM WERE SENT TO THE PATIENT. ACR BI-RADS Category 0 - Incomplete: Need additional imaging evaluation. [facility] will notify the patient of the need for additional imaging services. MAMMOGRAPHY NOTE: 1. A negative mammogram report should not delay a biopsy if a dominant of clinically suspicious mass is present. 2. Approximately 10% to 15% of breast cancers are not detected by mammography. 3. Adenosis and dense breasts may obscure an underlying neoplasm. Reported by: ANEUDY SIMMS MD Electonically Signed: [id number]
== END 2020-06-15 11:52 | disposition home or self-care (01) ==
LOC: BICMAMMO 11:51
PROVIDERS: ATTEND Family Medicine
DX: Z12.31 Encounter for screening mammogram for malignant neoplasm of breast (principal); Z91.89 Other specified personal risk factors, not elsewhere classified; N64.89 Other specified disorders of breast
CPT/HCPCS: 77063; 77067

== ENCOUNTER 2020-06-22 14:29 | Outpatient (CLI) | payer MEDICARE, MEDICAID ==
--- NOTE | 2020-06-22 15:11 | MMO ---
Left Breast MAMMO Unilat Diag [facility]. CLINICAL HISTORY: Patient is 70 years old and is seen for diagnostic exam. The patient has no family history of breast cancer. The patient has no personal history of cancer. The patient has a history of bilateral Stereotatic Biopsy in 2006 - benign. VIEWS: The views performed were: . FILMS COMPARED: The present examination has been compared to prior imaging studies performed at [facility] on 06/11/2017, 06/06/2018, 06/11/2019 and 06/15/2020. This study has been interpreted with the assistance of computer-aided detection. MAMMOGRAM FINDINGS: There are scattered fibroglandular densities. The questionable asymmetric density did not persist with the additional views. There are no suspicious masses, suspicious calcifications, or new areas of architectural distortion. IMPRESSION: THERE IS NO MAMMOGRAPHIC EVIDENCE OF MALIGNANCY. A ROUTINE FOLLOW-UP MAMMOGRAM IN 1 YEAR IS RECOMMENDED. THE RESULTS OF THIS EXAM WERE SENT TO THE PATIENT. ACR BI-RADS Category 2 - Benign finding MAMMOGRAPHY NOTE: 1. A negative mammogram report should not delay a biopsy if a dominant of clinically suspicious mass is present. 2. Approximately 10% to 15% of breast cancers are not detected by mammography. 3. Adenosis and dense breasts may obscure an underlying neoplasm. Reported by: YEHUDA WATSON MD Electonically Signed: [id number]
== END 2020-06-22 14:30 | disposition home or self-care (01) ==
LOC: BICMAMMO 14:29
PROVIDERS: ATTEND Family Medicine
DX: R92.2 Inconclusive mammogram (principal)
CPT/HCPCS: 77065; G0279

== ENCOUNTER 2021-06-29 13:59 | Outpatient (CLI) | payer MEDICARE, MEDICAID | END 2021-06-29 14:00 | disposition home or self-care (01) | LOC: BICMAMMO 13:59 | PROVIDERS: ATTEND Family Medicine | DX: Z12.31 Encounter for screening mammogram for malignant neoplasm of breast (principal); R91.8 Other nonspecific abnormal finding of lung field; N63.10 Unspecified lump in the right breast, unspecified quadrant | CPT/HCPCS: 71046; 77063; 77067 ==

== ENCOUNTER 2022-10-26 11:49 | Outpatient (CLI) | payer OTHER, MEDICAID | END 2022-10-26 11:50 | disposition home or self-care (01) | LOC: BICMAMMO 11:49 | PROVIDERS: ATTEND Family Medicine | DX: Z12.31 Encounter for screening mammogram for malignant neoplasm of breast (principal); Z91.89 Other specified personal risk factors, not elsewhere classified | CPT/HCPCS: 77063; 77067 ==

== ENCOUNTER 2023-07-19 11:48 | Outpatient (CLI) | payer OTHER | END 2023-07-19 11:49 | disposition home or self-care (01) | LOC: BICRAD 11:48 | PROVIDERS: ATTEND Student in an Organized Health Care Education/Training Program | DX: M47.22 Other spondylosis with radiculopathy, cervical region (principal); M47.26 Other spondylosis with radiculopathy, lumbar region; M25.511 Pain in right shoulder | CPT/HCPCS: 72040; 72100 ==

== ENCOUNTER 2023-10-05 03:08 | Emergency (ER) | payer OTHER, MEDICARE ==
[2023-10-05 04:25] LABS: #Monocytes 0.2 thou/uL (0.11-0.59); %Basophils 0.4 % (0.0-1.0); %Eosinophils 0.9 % (0.0-10.0); %Lymphocytes 26.2 % (21.0-51.0); %Monocytes 4.7 % (0.0-10.0); %Neutrophils 67.6 % (42.0-75.0); Hematocrit 40.8 % (36.0-47.0); Hemoglobin 13.4 g/dL (12.0-16.0); Mean Corpuscular HGB CONC 32.8 g/dL (32.0-36.0); Mean Corpuscular Hemoglobin 29.3 pg (27.0-31.0); Mean Corpuscular Volume 89.3 fl (78.0-98.0); Platelet Count 154 10x3/uL (130-400); RBC Distribution Width 13.2 % (11.5-14.5); Red Blood Cell (RBC) Count 4.57 mill/uL (4.20-5.40); White Blood Cell (WBC) Count 4.5 10x3/uL (4.8-10.8)
[2023-10-05 05:01] LABS: ALT (SGPT) 8 U/L (8-55); AST (SGOT) 10 U/L (5-34); Albumin 3.7 g/dL (3.4-4.8); Alkaline Phosphatase 64 U/L (40-110); Anion Gap 11 mmol/L (10-20); BUN (Urea Nitrogen) 9 mg/dL (9.8-20.1); Bilirubin, Total 0.7 mg/dL (0.2-1.2); Calc. Creatinine Clearance 0 mL/min (70-130); Calcium 9.2 mg/dL (7.8-10.44); Carbon Dioxide 25 mmol/L (23-31); Chloride 106 mmol/L (98-107); Estimated GFR 92; Glucose 106 mg/dL (83-110); Lipase 17 U/L (8-78); Potassium 3.8 mmol/L (3.5-5.1); Protein, Total 6.7 g/dL (5.8-8.1); Sodium 138 mmol/L (136-145)
[2023-10-05 05:07] LABS: Troponin I Less than 0.010 ng/mL (< 0.028)
== END 2023-10-05 07:20 | disposition home or self-care (01) ==
LOC: ERS 03:08
DX: R10.9 Unspecified abdominal pain (principal); R06.02 Shortness of breath; I10 Essential (primary) hypertension; E78.00 Pure hypercholesterolemia, unspecified; I74.9 Embolism and thrombosis of unspecified artery; F17.210 Nicotine dependence, cigarettes, uncomplicated; Z55.6 Problems related to health literacy; Z79.82 Long term (current) use of aspirin; Z79.899 Other long term (current) drug therapy
CPT/HCPCS: 36415; 71045; 71275; 74177; 80053; 83690; 84484; 85025; 85379; 93005

== ENCOUNTER 2024-06-06 11:00 | Outpatient (CLI) | payer OTHER, MEDICAID | END 2024-06-06 11:01 | disposition home or self-care (01) | LOC: PET 11:00 | PROVIDERS: ATTEND Student in an Organized Health Care Education/Training Program | DX: R91.8 Other nonspecific abnormal finding of lung field (principal) | CPT/HCPCS: 78815; A9552 ==

== ENCOUNTER 2024-07-29 12:00 | Inpatient (IN) | payer OTHER, MEDICAID ==
[2024-07-29 12:44] VITALS: BMI 23.3
[2024-07-29 13:29] LABS: #Basophils Less than 0.03 10x3/uL (0.0-0.2); %Basophils 0.5 % (0.0-1.0); %Eosinophils 2.9 % (0.0-10.0); %Lymphocytes 35.2 % (21.0-51.0); %Monocytes 6.5 % (0.0-10.0); %Neutrophils 54.7 % (42.0-75.0); Hematocrit 40.5 % (36.0-47.0); Hemoglobin 13.2 g/dL (12.0-16.0); Mean Corpuscular HGB CONC 32.6 g/dL (32.0-36.0); Mean Corpuscular Hemoglobin 28.4 pg (27.0-31.0); Mean Corpuscular Volume 87.3 fL (78.0-98.0); Platelet Count 150 10x3/uL (130-400); RBC Distribution Width 13.6 % (11.5-14.5); Red Blood Cell (RBC) Count 4.64 mill/uL (4.20-5.40)
[2024-07-29 13:44] LABS: Anion Gap 12 mmol/L (10-20); BUN (Urea Nitrogen) 8 mg/dL (9.8-20.1); Calc. Creatinine Clearance 0 mL/min (70-130); Carbon Dioxide 26 mmol/L (23-31); Chloride 106 mmol/L (98-107); Estimated GFR 89; Glucose 88 mg/dL (83-110); Potassium 3.4 mmol/L (3.5-5.1); Sodium 141 mmol/L (136-145)
[2024-07-30] MEDS ORDERED: Lidocaine 1% MPF 2 ML VIAL ONE (11:18)
[2024-07-30] MEDS ORDERED: Bupivacaine 0.25% HCL 30 ML VIAL ONE (13:06)
[2024-07-30] MEDS ORDERED: EPINEPHrine 1 MG/ML VIAL ONE (13:06)
[2024-07-30] MEDS ORDERED: Ondansetron PF 4 MG/2 ML Vial ONE (13:10)
[2024-07-30] MEDS ORDERED: Dexamethasone 20 MG/5 ML VIAL ONE ×2 (13:10→15:22)
[2024-07-30] MEDS ORDERED: Lidocaine 2% PF 5 ML VIAL ONE (13:10)
[2024-07-30] MEDS ORDERED: Rocuronium Bromide 10 MG/ML (10ML VIAL) ONE (13:10)
[2024-07-30] MEDS ORDERED: PROPOFOL 20 ML ONE (13:10)
[2024-07-30] MEDS ORDERED: fentaNYL PF 100 MCG/2 ML SYRINGE ONE (13:10)
[2024-07-30] MEDS ORDERED: PHENYLEPHRINE-NS 100 MCG/ML 10 ML SYRINGE ONE (13:10)
[2024-07-30] MEDS ORDERED: Glycopyrrolate 0.2 MG/ML 5 ML SYRINGE ONE (13:10)
[2024-07-30] MEDS ORDERED: Lidocaine 2% 6 ML (Jelly) SYR ONE (13:32)
[2024-07-30] MEDS ORDERED: CEFAZOLIN 2 GM VIAL ONE ×2 (13:33→21:13)
[2024-07-30] MEDS ORDERED: ePHEDrine Sulfate 50 MG/10 ML VIAL ONE (14:49)
[2024-07-30] MEDS ORDERED: fentaNYL 50 mcg/mL 1 mL Vial ONE ×5 (14:51→21:20)
[2024-07-30] MEDS ORDERED: SUGAMMADEX SODIUM 200 MG/2 ML VIAL ONE (16:04)
[2024-07-30] MEDS ORDERED: Ondansetron HCl/PF 4 MG/2 ML Vial IVP PRN (16:31)
[2024-07-30] MEDS ORDERED: Meperidine HCl/PF 25 MG/ML VIAL SLOW IVP PRN (16:31)
[2024-07-30] MEDS ORDERED: Promethazine HCl 25 MG/ML VIAL IM PRN ×2 (16:31→17:04)
[2024-07-30] MEDS ORDERED: HYDROmorphone 2 MG/ML VIAL SLOW IVP PRN (16:31)
[2024-07-30] MEDS ORDERED: Ipratropium/Albuterol 3 ML NEB NEB PRN (17:04)
[2024-07-30] MEDS ORDERED: hydrALAZINE 20 MG/ML VIAL SLOW IVP PRN (17:04)
[2024-07-30] MEDS ORDERED: Ondansetron PF 4 MG/2 ML Vial IVP PRN (17:04)
[2024-07-30] MEDS ORDERED: Cyclobenzaprine 10 MG TAB PO PRN (17:04)
[2024-07-30] MEDS ORDERED: HYDROmorphone 0.5 MG/0.5 ML SYRINGE ONE ×2 (17:18→17:32)
[2024-07-30] MEDS: Sodium Chloride 0.9% 1,000 ML IV SCH (17:44)
[2024-07-30] MEDS ORDERED: Ketorolac Tromethamine 30 MG (1 mL) VIAL ONE (17:45)
[2024-07-30] MEDS: Ketorolac Tromethamine 30 MG (1 mL) VIAL IVP SCH (17:48)
[2024-07-30 18:36] LABS: #Basophils Less than 0.03 10x3/uL (0.0-0.2); %Basophils 0.2 % (0.0-1.0); %Eosinophils 0.6 % (0.0-10.0); %Monocytes 1.3 % (0.0-10.0); %Neutrophils 83.3 % (42.0-75.0); Hematocrit 40.5 % (36.0-47.0); Mean Corpuscular HGB CONC 32.1 g/dL (32.0-36.0); Mean Corpuscular Hemoglobin 28.3 pg (27.0-31.0); Platelet Count 143 10x3/uL (130-400); RBC Distribution Width 13.5 % (11.5-14.5)
[2024-07-30 18:53] LABS: Anion Gap 14 mmol/L (10-20); BUN (Urea Nitrogen) 6 mg/dL (9.8-20.1); Calc. Creatinine Clearance 79 mL/min (70-130); Calcium 8.1 mg/dL (7.8-10.44); Carbon Dioxide 20 mmol/L (23-31); Chloride 110 mmol/L (98-107); Estimated GFR 93; Glucose 171 mg/dL (83-110); Magnesium 1.7 mg/dL (1.6-2.6); Potassium 3.4 mmol/L (3.5-5.1); Sodium 141 mmol/L (136-145)
[2024-07-30] MEDS ORDERED: Acetaminophen 325 MG TAB ONE (19:00)
[2024-07-30] MEDS: Acetaminophen 325 MG TAB PO SCH (19:02)
[2024-07-30] MEDS ORDERED: Gabapentin 300 MG CAP ONE (21:12)
[2024-07-30] MEDS ORDERED: Sodium Chloride 0.9% 100 ML ONE (21:13)
[2024-07-30] MEDS: Gabapentin 300 MG CAP PO SCH (21:18)
[2024-07-30] MEDS: CEFAZOLIN 2 GM in Sodium Chloride 0.9% 100 ML IVPB SCH (21:32)
[2024-07-31] MEDS: HYDROcodone/Acetaminophen 5/325 mg Tablet PO PRN (07:39)
[2024-07-31] MEDS: Lidocaine 4% Patch TD SCH (07:41)
[2024-07-31] MEDS: LIDOCAINE Patch Removal TOP SCH (20:42)
[2024-08-01] MEDS: HYDROcodone/Acetaminophen 5/325 mg Tablet PO PRN (00:24)
[2024-08-01 08:00] VITALS: BP 143/73; TEMP 98.7
[2024-08-01] MEDS: Amlodipine 10 MG TAB PO SCH (09:16)
[2024-08-01] MEDS: Polyethylene Glycol 3350 17 GM Packet PO SCH (09:16)
[2024-08-01] MEDS: Lactulose 20 GM (30 mL) UDCUP PO SCH (09:16)
[2024-08-01] MEDS ORDERED: Atorvastatin Calcium 10 MG TAB PO SCH (21:00)
[2024-08-01] MEDS ORDERED: Aspirin 81 mg Enteric Coated Tablet PO SCH (21:00)
== END 2024-08-01 12:35 | disposition home or self-care (01) | DRG 165 ==
LOC: SURG A 07-30 10:01 → PCU 07-30 22:55
PROVIDERS: ADMIT Student in an Organized Health Care Education/Training Program; ATTEND Student in an Organized Health Care Education/Training Program
PROC: 0BBF4ZZ Excision of Right Lower Lung Lobe, Percutaneous Endoscopic Approach (ICD-10-PCS; principal; 2024-07-30)
PROC: 07B74ZZ Excision of Thorax Lymphatic, Percutaneous Endoscopic Approach (ICD-10-PCS; 2024-07-30)
PROC: 8E0W4CZ Robotic Assisted Procedure of Trunk Region, Percutaneous Endoscopic Approach (ICD-10-PCS; 2024-07-30)
DX: C34.31 Malignant neoplasm of lower lobe, right bronchus or lung (principal); E78.5 Hyperlipidemia, unspecified; I10 Essential (primary) hypertension; M54.16 Radiculopathy, lumbar region; F17.210 Nicotine dependence, cigarettes, uncomplicated; Z79.899 Other long term (current) drug therapy
CPT/HCPCS: 36415; 71045; 80048; 83735; 84100; 85025; 86850; 86900; 86901; 88305; 88307; 88331; A4314; C1776; J0171; J0665; J1100; J1171; J1885; J2405; J2704; J3010; J7030; S2900

== ENCOUNTER 2024-07-29 12:33 | Outpatient (CLI) | payer OTHER, MEDICAID | END 2024-07-29 12:34 | disposition home or self-care (01) | LOC: LABBT 12:33 | PROVIDERS: ATTEND Student in an Organized Health Care Education/Training Program | DX: Z01.818 Encounter for other preprocedural examination (principal); R91.1 Solitary pulmonary nodule | CPT/HCPCS: 71046; 93005; 93010 ==

== ENCOUNTER 2024-08-19 14:28 | Outpatient (CLI) | payer OTHER, MEDICAID | END 2024-08-19 14:29 | disposition home or self-care (01) | LOC: RAD 14:28 | PROVIDERS: ATTEND Student in an Organized Health Care Education/Training Program | DX: R91.1 Solitary pulmonary nodule (principal) | CPT/HCPCS: 71046 ==

== ENCOUNTER 2025-03-24 10:37 | Outpatient (CLI) | payer OTHER, MEDICAID | END 2025-03-24 10:38 | disposition home or self-care (01) | LOC: BICCT 10:37 | PROVIDERS: ATTEND Student in an Organized Health Care Education/Training Program | DX: C34.31 Malignant neoplasm of lower lobe, right bronchus or lung (principal) | CPT/HCPCS: 71250 ==